=== PATIENT | female | born 1990 | race American Indian/Alaskan Native ===

== ENCOUNTER 2019-05-15 06:50 | Emergency (ER) | payer SELFPAY ==
[2019-05-15 07:45] VITALS: BP 154/106
--- NOTE | 2019-05-15 07:57 | XRay Report ---
RIGHT WRIST 3 VIEWS INDICATION / CLINICAL INFORMATION: Injury with right wrist pain. COMPARISON: None available. FINDINGS: BONES / JOINT(S): There is a tiny ossific density adjacent to the tip of the ulnar styloid laterally. This could be related to old trauma rather than acute injury. There is no evidence of significant ar thritis. SOFT TISSUES: No significant abnormality. ADDITIONAL FINDINGS: None. Signer Name: Giles Restrepo MD Signed: 05/15/2019 7:52 AM Workstation Name: [id number]
[2019-05-15] MEDS ORDERED: IBUPROFEN 600 MG TAB PO ONE (08:00)
[2019-05-15] MEDS ORDERED: TETANUS,DIPH,PERTUSS(ACELL) VACCINE 0.5 ML SYRINGE IM ONE (08:00)
--- NOTE | 2019-05-15 08:04 | Emergency Department Report ---
HPI - General Chief Complaint: Extremity Injury, Upper Time Seen by Provider: 05/15/19 08:00 - HPI HPI: 28-year-old -[place] female presents to the emergency department with complaint of right wrist pain and a small right wrist laceration after she accidentally hit her wrist on in the front door knob last night around 11 PM. She is right-hand dominant. She has not taken anything for her symptoms prior to presentation. No past medical history. ED Past Medical Hx - Past Medical History Previous Medical History?: No - Surgical History Past Surgical History?: No - Social History Smoking Status: Current Every Day Smoker Substance Use Type: Alcohol, Marijuana - Medications Home Medications: Home Medications Medication Instructions Recorded Confirmed Last Taken Type Ibuprofen [Motrin 600 MG tab] 600 mg PO Q8H PRN #20 tablet 05/15/19 Unknown Rx ED Review of Systems ROS: Stated complaint: R WRIST PAIN Other details as noted in HPI Comment: All other systems reviewed and negative Constitutional: denies: chills, fever Musculoskeletal: joint swelling, arthralgia Neurological: denies: headache, weakness Physical Exam - Physical Exam Vital Signs: Vital Signs 05/15/19 07:18 Temperature 98.6 F Pulse Rate 115 H Respiratory 18 Rate Blood Pressure 154/106 O2 Sat by Pulse 100 Oximetry Physical Exam: GENERAL: The patient is well-developed well-nourished. HENT: Normocephalic. Atraumatic. Patient has moist mucous membranes. EYES: Extraocular motions are intact. NECK: Supple. Trachea is midline. SKIN: Skin is warm and dry. There is a less than 1 cm laceration to the ulnar side of the right wrist. No current bleeding, surrounding erythema or any purulent discharge. NEURO: The patient is awake, alert, and oriented. The patient is cooperative. The patient has no focal neurologic deficits. Normal speech. MUSCULOSKELETAL: There is tenderness to palpation to the circumferential right wrist without any obvious deformity. Decreased range of motion secondary to pain. +2/4 radial pulse and capillary refill less than 2 seconds to the affected right upper extremity. ED Course Vital Signs 05/15/19 07:18 Temperature 98.6 F Pulse Rate 115 H Respiratory 18 Rate Blood Pressure 154/106 O2 Sat by Pulse 100 Oximetry ED Medical Decision Making - Radiology Data Radiology results: image reviewed interpreted by me: X-ray of the right wrist does not show any fracture, dislocation, or any acute process. - Medical Decision Making Patient presents to the emergency department with the complaint of right wrist pain and a small laceration after hitting that area on a door handle/knob last night. She is neurovascularly intact. Given a Boostrix shot for the small laceration as she has not sure of her last tetanus vaccination. The area will be closed with Steri-Strips and Dermabond. When I reviewed the x-ray, there did not appear to be any obvious fracture, dislocation, or any other acute process. Radiologist felt that there was an old small ulnar styloid avulsion. Patient was placed in a splint and was given referrals for orthopedist. She will return to the ER with any worsening of her symptoms or any acute distress. Critical Care Time: No Critical care attestation.: If time is entered above; I have spent that time in minutes in the direct care of this critically ill patient, excluding procedure time. ED Disposition Clinical Impression: Right wrist pain Laceration of wrist Qualifiers: Encounter type: initial encounter Laterality: right Qualified Code(s): S61.511A - Laceration without foreign body of right wrist, initial encounter Contusion, wrist Qualifiers: Encounter type: initial encounter Laterality: right Qualified Code(s): S60.211A - Contusion of right wrist, initial encounter Disposition: TO HOME OR SELFCARE Is pt being admited?: No Condition: Stable Instructions: Wrist Injury (ED), Laceration (ED), Skin Adhesive Care (ED) Additional Instructions: Please follow-up with an orthopedist in the next few days. I have given you a referral for a local orthopedist, Dr. Rosario. Clean the area of the laceration with soap and water and then make sure it remains dry. Make sure you are seen immediately with any signs/symptoms of infection such as increased swelling, redness, increased or new pain, development of fever, or discharge of pus, or of course with any acute distress. Prescriptions: Ibuprofen [Motrin 600 MG tab] 600 mg PO Q8H PRN #20 tablet PRN Reason: Pain Referrals: PRIMARY MD JULIO [Primary Care Provider] - 2-3 Days SHALOM ROSARIO MD [Staff Physician] - 2-3 Days Time of Disposition: 08:04
== END 2019-05-15 08:48 | disposition home or self-care (01) ==
LOC: ED 06:50
DX: S61.511A Laceration without foreign body of right wrist, initial encounter (principal); S60.211A Contusion of right wrist, initial encounter; F17.200 Nicotine dependence, unspecified, uncomplicated; F12.10 Cannabis abuse, uncomplicated; Z79.1 Long term (current) use of non-steroidal anti-inflammatories (NSAID); W22.8XXA Striking against or struck by other objects, initial encounter; Y93.89 Activity, other specified; Y92.89 Other specified places as the place of occurrence of the external cause; Y99.8 Other external cause status
CPT/HCPCS: 90471; 90715